=== PATIENT | male | born 1965 | race Caucasian/White ===

== ENCOUNTER → 2019-08-04 09:10 | Outpatient (CLI) | payer OTHER, SELFPAY ==
--- NOTE | 2019-08-04 | DI.CT.S_ITS ---
PROCEDURE: CT ABDOMEN PELVIS W CON INDICATIONS: Encounter for screening for malignant neoplasm of left lower lymphnode TECHNIQUE: After the administration of oral and intravenous contrast, 5 mm thick sections acquired from the diaphragms to the symphysis. 5 mm thick coronal and sagittal reformats were performed. For radiation dose reduction, the following was used: automated exposure control, adjustment of mA and/or kV according to patient size. COMPARISON: None. FINDINGS: Image quality: Excellent. ABDOMEN: Lung bases: Lung bases are clear. Heart size is normal. Solid organs: Liver is normal in size and enhancement. Gallbladder appears normal. Biliary system is non-dilated. Pancreas enhances normally. Spleen is normal in size and enhancement. No adrenal nodules. Kidneys are normal in size and enhancement, without hydronephrosis. Peritoneum and bowel: Stomach, small bowel, and colon loops are normal in caliber and wall thickness. No free fluid or air. Nodes and vessels: No retroperitoneal or mesenteric adenopathy. Aorta and inferior vena cava are normal in caliber. Miscellaneous: No ventral hernias. PELVIS: Genitourinary: Bladder wall thickness is abnormal at the anterior right lateral bladder wall over a 5.8 cm length tapering both proximally and distally, with maximal thickness measuring up to 9 mm while the same area on the left measures only 3 mm in thickness and the appearance raises concern for presence of a plaque-like neoplasm such as transitional cell carcinoma. Miscellaneous: No inguinal hernias. Note is made of a left-sided inguinal lymph node that measures up to 2.0 cm AP and short axis dimension is 1 point for centimeters. Bones: No suspicious bony lesions. No vertebral body compression fractures. IMPRESSION: 1. Right anterolateral plaque-like area of bladder wall thickening, measuring up to 9 mm, with normal thickness of the same area on the left, measuring only 3 mm in maximal thickness. A plaque-like urothelial neoplasm could produce this appearance. Urology consultation likely is warranted. 2. Left inguinal lymph node measures 2.0 x 1.4 cm in maximal dimension with the short axis dimension within normal limits. Continued clinical followup with attention to that site is recommended. Dictated by: Jose Luis Hitchcock M.D. on 08/04/2019 at 10:45 Approved by: Jose Luis Hitchcock M.D. on 08/04/2019 at 11:06
== END ==
PROVIDERS: PCP Internal Medicine; Visit Provider Internal Medicine
DX: Z12.89 Encounter for screening for malignant neoplasm of other sites (principal); R59.0 Localized enlarged lymph nodes
CPT/HCPCS: 74177; Q9967

== ENCOUNTER → 2023-05-23 16:24 | Outpatient (CLI) | payer OTHER, SELFPAY ==
--- NOTE | 2023-05-23 | DI.MRI.S_ITS ---
PROCEDURE: MR KNEE RT WO CON INDICATIONS: Pain in right knee TECHNIQUE: Noncontrast sagittal PD fast spin echo and T2 fast spin echo with fat saturation, sagittal 3-D FLASH with fat saturation; coronal T1 spin echo and PD fast spin echo with fat saturation, and axial PD fast spin echo with fat saturation through the knee. COMPARISON: None. FINDINGS: Image quality: Excellent. Menisci: The medial and lateral menisci demonstrate normal morphology and internal signal. The meniscal root ligaments appear intact. Cruciate ligaments: The anterior and posterior cruciate ligaments appear intact. Medial structures: The medial collateral ligament appears thickened with surrounding soft tissue edema at its femoral insertion. The posterior oblique ligament, semimembranosus tendon insertions, oblique popliteal ligament, and meniscocapsular junction appear intact. Visualized portions of the pes anserinus tendons appear normal. No abnormal bursal fluid. Lateral structures: The lateral collateral ligament, long and short heads of the biceps femoris tendon appear intact. The popliteus tendon appears normal; the popliteofibular ligament appears intact. Iliotibial band appears normal. Anterior structures: Distal quadriceps tendinosis at its superior patellar insertion is seen. The patellar tendon is intact. Low-grade sprain/partial-thickness tear involving medial patellofemoral ligament near its patellar insertion is seen. Patellar alignment is normal. No femoral trochlear dysplasia or ventral trochlear prominence. No edema in the infrapatellar fat pad. Bones and cartilage: No bone marrow contusions or fractures. Mild tricompartmental osteoarthritis and low-grade chondromalacia is noted. Nonspecific subcortical cystic changes are noted involving base of tibial spine near ACL insertion. Joint space: There is small knee joint fluid. There is a 1.6 x 1 x 2.8 cm Pack's cyst. Normal appearing synovial plicae are incidentally noted. IMPRESSION: 1. No definite focal meniscal tear. 2. The cruciate ligaments are intact. 3. Low to moderate grade proximal MCL sprain. 4. Distal quadriceps tendinosis. Low-grade sprain/partial-thickness tear involving medial patellofemoral ligament at its patellar insertion. 5. Small joint effusion and a small Pack's cyst. No loose bodies. Dictated by: Ayo Thompson M.D. on 05/26/2023 at 9:43 Approved by: Ayo Thompson M.D. on 05/26/2023 at 9:55
== END ==
PROVIDERS: PCP Internal Medicine; Referring Provider Internal Medicine; Visit Provider Internal Medicine
DX: S83.411A Sprain of medial collateral ligament of right knee, initial encounter (principal); S76.111A Strain of right quadriceps muscle, fascia and tendon, initial encounter; M25.561 Pain in right knee; M25.461 Effusion, right knee; M71.21 Synovial cyst of popliteal space [Baker], right knee
CPT/HCPCS: 73721

== ENCOUNTER 2024-11-09 21:54 | Emergency (ER) | payer OTHER, SELFPAY ==
[2024-11-09 21:57] VITALS: BP 179/88; PULSE 88; RESP 18; TEMP 36.4; O2SAT 97; BMI 27.7
--- NOTE | 2024-11-09 22:53 | DI.US.S_ITS ---
PROCEDURE: US PERIPH VENOUS LOW EXTREM LT INDICATIONS: Evaluate for DVT TECHNIQUE: Real-time imaging, as well as color and pulse Doppler interrogation, were performed of the lower extremity deep veins from the inguinal ligament to the popliteal fossa, with documentation of the visualized calf veins. COMPARISON: None. FINDINGS: The common femoral, femoral, popliteal, and the visualized calf veins are normally compressible, and free of intraluminal thrombus. Color and pulse Doppler demonstrate normal phasic intraluminal flow. There is normal augmentation response to distal compression maneuver. IMPRESSION: No findings of lower extremity deep venous thrombosis. Approved by: Анна Aguilar M.D.,Ph.D. on 11/09/2024 at 23:41
--- NOTE | 2024-11-09 23:53 | ED.EXTPRO ---
HPI - Extremity Problem General Chief complaint: Extremity Problem,Nontraumatic Stated complaint: left leg and foot px and swelling Time Seen by Provider: 11/09/24 23:53 Source: patient Mode of arrival: Ambulatory History of Present Illness HPI Narrative: 58-year-old male without any significant past medical history comes into the ED from home for evaluation of left leg pain foot pain swelling nontraumatic in nature. States it started approximately 45 days ago has been taking Tylenol with mild relief states he is worried about DVT therefore decided come into the ED for further evaluation treatment. He denies any trauma or falls not on any blood thinners denies any other symptoms such as headache visual disturbances chest pain shortness breath fever chills nausea vomiting abdominal pain or any other GI/ symptoms time. Patient does not have/know of any family or personal history of bleeding or clotting disorders no recent travel. Patient states that he did recently have a injection to his right knee 4 history of knee pain and was told not to be on any NSAIDs for a proximally 4 weeks. He also states that he does have a history of gout states that it was similar previously but given persistent symptoms came into the ED for further evaluation treatment. Related Data Previous Rx's Medication Instructions Recorded prednisone 20 mg tablet 20 mg PO DAILY 10 days #15 tabs 11/10/24 sulfamethoxazole 800 2 tab PO BID 7 days #28 tabs 11/10/24 mg-trimethoprim 160 mg tablet (Bactrim DS) Allergies Allergy/AdvReac Type Severity Reaction Status Date / Time No Known Drug Allergies Allergy Verified 11/09/24 21:57 Review of Systems Review of Systems Narrative: General: Denies fever, chills, weight loss HEENT: Denies headache, eye drainage, eye irritation, head trauma, sore throat, voice change Cardiovascular: Denies any chest pain, palpitations, tachycardia Respiratory: Denies any shortness of breath, cough, wheeze, stridor GI/: Denies any abdominal pain, nausea, vomiting, diarrhea, bright red blood per rectum, melanotic stools, urinary frequency, urinary retention, dysuria, hematuria MSK: Left toe pain swelling redness Skin: Denies any rashes, lesions, discoloration Neuro: Denies any headache, lightheadedness, dizziness, fainting, weakness Psych: Denies SI/HI Patient History Social History (System 01/01/24 @ 08:44 by Tiffanie Marroquin) Smoking Status: Never smoker Smoking Status: Never smoker Exam Narrative Exam Narrative: General: Cooperative, comfortable, well-developed, not in acute distress HEENT: Normocephalic, atraumatic, PERRLA, normal sclera, eyelids normal, Neck: Active full range of motion, atraumatic Chest: Normal to inspection, negative crepitus, no overlying erythema ecchymosis Respiratory: Normal respiratory effort, not in acute respiratory distress, clear to auscultation bilaterally negative cough, wheeze, tachypnea, rhonchi, rales Cardiology: Regular rate rhythm negative gallop, murmur, rubs GI/: Normal to inspection, soft, nonrigid, no tenderness to palpation, exam deferred MSK: Bilateral lower extremities are neurovascularly intact, the left toe does appear erythematous but no streaking there is mild tenderness to palpation however no crepitus noted. Skin: No rashes lesions noted Neuro: Alert awake oriented x3, moves all 4 extremities spontaneously, cranial nerves intact, able to answer all questions appropriately follows commands appropriately Psych: Cooperative, negative suicidal or homicidal ideations Initial Vital Signs Initial Vital Signs: Vital Signs Temperature 97.6 F 11/09/24 21:57 Pulse Rate 88 11/09/24 21:57 Respiratory Rate 18 11/09/24 21:57 Blood Pressure 179/88 H 11/09/24 21:57 Pulse Oximetry 97 11/09/24 21:57 Oxygen Delivery Method Room Air 11/09/24 21:57 Course Orders Ordered: ED Orders 11/09/24 22:53 US periph venous low extrem lt Stat Prednisone (Prednisone 20 Mg Tablet) 40 mg PO NOW ONE Stop: 11/10/24 00:18 Trimethoprim/Sulfamethoxazole (Trimeth/Sulfa 160/800 (Ds) Tablet) 1 tab PO NOW ONE Stop: 11/10/24 00:18 Vital Signs Vital signs: Vital Signs - 8 hr 11/09/24 21:57 Temperature 97.6 F Pulse Rate 88 Respiratory Rate 18 Blood Pressure 179/88 H Pulse Oximetry 97 Oxygen Delivery Method Room Air MDM - Extremity (Nontraumatic) Differential Diagnosis Differential diagnosis: Likely deep vein thrombosis of lower extremity and other (Gout, cellulitis) Imaging Data US - DVT: Radiologist's Impression: [address] [address] Ultrasound Report Signed Patient: Carl Liu MR#: [id number] : 1965 Acct:[id number] Age/Sex: 58 / M Date of Service: 11/09/24 Loc: ED Accession Number: [id number] Procedure: US periph venous low extrem lt Ordering Provider: Corbin Suggs D.O. PROCEDURE: US PERIPH VENOUS LOW EXTREM LT INDICATIONS: Evaluate for DVT TECHNIQUE: Real-time imaging, as well as color and pulse Doppler interrogation, were performed of the lower extremity deep veins from the inguinal ligament to the popliteal fossa, with documentation of the visualized calf veins. COMPARISON: None. FINDINGS: The common femoral, femoral, popliteal, and the visualized calf veins are normally compressible, and free of intraluminal thrombus. Color and pulse Doppler demonstrate normal phasic intraluminal flow. There is normal augmentation response to distal compression maneuver. IMPRESSION: No findings of lower extremity deep venous thrombosis. MDM Narrative Medical decision making narrative: 58-year-old male with a history of gout comes into the ED from home for evaluation of left toe pain, states it started spontaneously a proximally 4-5 days ago no trauma no falls not on any blood thinners no recent travel. He states that it was similar to when he had gout in the past however symptoms lasted a lot longer therefore came into the ED for further evaluation treatment. Denies any trauma or falls. Patient states that he is not having any other systemic symptoms. Patient was concerned he might have had a blood clot DVT ultrasound performed here negative for acute DVT. Did discuss need for possible arthrocentesis as well as x-ray however patient states that he just came in to make sure that he did not have a blood clot. Did offer additional lab work imaging but would prefer to trial oral antibiotics and steroids to treat overlying cellulitis and gout. Patient not able to take NSAIDs for additional 2 weeks given recent history of injections to his right knee according to his orthopedic surgeon. Therefore patient will be sent home with oral antibiotics for cellulitis and steroids for possible gout flare-up. He was given strict return precautions he verbalized understanding of this and agrees to being discharged home with outpatient follow up Discharge Plan Departure Patient Disposition: Home Clinical Impression: Pain of left great toe Instructions: DI for Cellulitis -- Adult, DI for Gout Activity Restrictions/Additional Instructions: Please follow up with Orthopedic surgery or Podiatry as well as your primary care doctor in outpatient setting Please return to the emergency department if the symptoms get worse or do not improve Please read the discharge instructions sheet carefully and bring all papers to all doctor follow-up visits, as it may contain information that your doctor may want to see. Disease processes change and evolve, if your symptoms worsen or if you develop any new symptoms that are concerning to you please return for evaluation. Your evaluation today does not show any evidence of any life-threatening/serious illnesses requiring admission to the hospital or surgery. Please follow-up with your doctor for re-evaluation in approximately 1 day. Seek immediate medical attention for any worrisome symptoms. *If you do not have a primary care provider please contact the [facility] Resource line at [phone]. They will ask some questions about your medical history and help get you set up with a doctor in the community. Prescriptions: New sulfamethoxazole-trimethoprim [Bactrim DS] 800-160 mg tablet 2 tab PO BID 7 Days Qty: 28 0RF prednisone 20 mg tablet 20 mg PO DAILY 10 Days Qty: 15 0RF Rx Instructions: Please take 30 mg prednisone for the 1st 5 days, please decrease the mg of prednisone by 5 for the remaining 5 days Day 1-5 Please take 30 mg Day 6 please take 25 mg Day 7 please take 20 mg Day 8 please take 15 mg Day 9 please take 10 mg Day 10 please take 5 mg Referrals: Katalina Clemens MD [Primary Care Provider] - Stand Alone Forms: Patient Portal/API/Survey
[2024-11-10] MEDS: predniSONE 20 MG TABLET 40 MG PO (00:26)
[2024-11-10] MEDS: TRIMETH/SULFA 160/800 (DS) TABLET 1 TAB PO (00:26)
[2024-11-10 00:33] VITALS: BP 160/86; PULSE 86; RESP 14; TEMP 36.6; O2SAT 98
== END 2024-11-10 00:35 | disposition home or self-care (01) ==
PROVIDERS: Emergency Provider Student in an Organized Health Care Education/Training Program; PCP Internal Medicine
DX: M79.675 Pain in left toe(s) (principal)
CPT/HCPCS: 93971; 99283

== ENCOUNTER 2025-01-03 11:57 | Emergency (ER) | payer OTHER, SELFPAY ==
[2025-01-03 12:03] VITALS: BP 185/88; PULSE 87; RESP 17; TEMP 37.1; O2SAT 97; BMI 27.7
--- NOTE | 2025-01-03 12:24 | ED_ITS ---
HPI - Extremity Problem <Paul Gonzalez PA-C - Last Filed: 01/03/25 15:29> General Chief complaint: Extremity Problem,Nontraumatic Stated complaint: Left foot joint pain Time Seen by Provider: 01/03/25 12:13 Source: patient Mode of arrival: Ambulatory History of Present Illness HPI Narrative: 59-year-old male with past medical history gout presents to the ED with 2 months of left big toe swelling, redness, pain. Patient was seen in the ED on 11/09/2024 with the same symptoms. Patient was given antibiotics and prednisone. Patient states that his symptoms improved for some time, however the symptoms resurfaced again. Patient has had a distant history of gout. No numbness, tingling, weakness. No fever, chills, chest pain, shortness of breath, nausea, vomiting. Related Data Home Medications Medication Instructions Recorded Confirmed albuterol sulfate 90 mcg/actuation 1 inh inhalation QID 01/03/25 01/03/25 aerosol inhaler montelukast 10 mg tablet 10 mg PO DAILY 01/03/25 01/03/25 (Singulair) Previous Rx's Medication Instructions Recorded prednisone 5 mg tablet See Rx Instructions .Route 01/03/25 .COMPLEX #45 tabs Allergies Allergy/AdvReac Type Severity Reaction Status Date / Time No Known Drug Allergies Allergy Verified 01/03/25 12:06 Review of Systems <Paul Gonzalez PA-C - Last Filed: 01/03/25 15:29> Constitutional Constitutional: Denies chills, Denies fatigue, Denies fever(s), Denies frequent falls, Denies lethargy and Denies weakness Eyes Eyes: Denies change in vision, Denies eye discharge, Denies irritation and Denies loss of vision ENT Ears, Nose, Mouth, and Throat: Denies change in voice, Denies dizziness, Denies neck pain, Denies sore throat and Denies throat swelling Cardiovascular Cardiovascular: Denies chest pain, Denies irregular heart rhythm, Denies lightheadedness, Denies palpitations, Denies dyspnea, Denies dyspnea on exertion and Denies orthopnea Respiratory Respiratory: Denies cough, Denies dyspnea, Denies dyspnea on exertion and Denies wheezing Gastrointestinal Gastrointestinal: Denies abdominal pain, Denies change in bowel habits, Denies diarrhea, Denies nausea and Denies vomiting Musculoskeletal Musculoskeletal: Denies neck pain and Denies numbness Comments: Base of 1st left MTP swelling, redness, pain Integumentary/Breasts Skin/Breast: Denies pruritus, Denies erythema, Denies rash and Denies wounds Neurologic Neurologic: Denies behavioral changes, Denies confusion, Denies dizziness, Denies frequent falls, Denies loss of vision, Denies numbness and Denies weakness Psychiatric Psychiatric: Denies anxiety, Denies behavioral changes, Denies confusion, Denies depression, Denies homicidal ideation and Denies suicidal ideation Endocrine Endocrine: Denies fatigue, Denies flushing and Denies palpitations Hematologic/Lymphatic Hematologic/Lymphatic: Denies easy bruising Allergic/Immunologic Allergic/Immunologic: Denies urticaria, Denies throat swelling and Denies wheezing Patient History <Paul Gonzalez PA-C - Last Filed: 01/03/25 15:29> Smoking Status: Never smoker Exam <JLUIS Barker Last Filed: 01/03/25 15:29> Narrative Exam Narrative: Const General:?cooperative, healthy appearing and comfortable [facility] Head:?normal to inspection Ears:?hearing grossly normal bilaterally Nose:?external nose normal Face and sinus:?normal facial exam and sinuses nontender Mouth:?oral mucosae normal Throat:?posterior oropharynx normal Eyes General:?appearance normal, both eyes and all related structures Neck Neck:?normal visual inspection and no lymphadenopathy noted Resp Effort & Inspection:?normal respiratory effort Auscultation:?clear to auscultation bilaterally Cardio Rate:?regular rate Rhythm:?regular rhythm Musculoskeletal There is swelling, tenderness, erythema to the base of the left 1st MTP. There is full range of motion. Strength and sensation is intact. Neurovascularly intact. Neuro General:?patient alert, patient awake and patient oriented x3 Initial Vital Signs Initial Vital Signs: Vital Signs Temperature 98.7 F 01/03/25 12:03 Pulse Rate 87 01/03/25 12:03 Respiratory Rate 17 01/03/25 12:03 Blood Pressure 185/88 H 01/03/25 12:03 Pulse Oximetry 97 01/03/25 12:03 Oxygen Delivery Method Room Air 01/03/25 12:03 <Becky Guido DO - Last Filed: 01/09/25 23:45> Initial Vital Signs Initial Vital Signs: Vital Signs Temperature 98.7 F 01/03/25 12:03 Pulse Rate 87 01/03/25 12:03 Respiratory Rate 17 01/03/25 12:03 Blood Pressure 185/88 H 01/03/25 12:03 Pulse Oximetry 97 01/03/25 12:03 Oxygen Delivery Method Room Air 01/03/25 12:03 Course <Paul Gonzalez PA-C - Last Filed: 01/03/25 15:29> Orders Ordered: ED Orders 01/03/25 13:16 XR foot LT min 3V Stat Vital Signs Vital signs: Vital Signs - 8 hr 01/03/25 12:03 01/03/25 14:31 Temperature 98.7 F 98.1 F Pulse Rate 87 100 H Respiratory Rate 17 16 Blood Pressure 185/88 H 162/72 H Pulse Oximetry 97 96 Oxygen Delivery Method Room Air Room Air <Becky Guido DO - Last Filed: 01/09/25 23:45> Orders Ordered: ED Orders 01/03/25 13:16 XR foot LT min 3V Stat Vital Signs Vital signs: Vital Signs - 8 hr 01/03/25 12:03 01/03/25 14:31 Temperature 98.7 F 98.1 F Pulse Rate 87 100 H Respiratory Rate 17 16 Blood Pressure 185/88 H 162/72 H Pulse Oximetry 97 96 Oxygen Delivery Method Room Air Room Air MDM - Extremity (Nontraumatic) <JLUIS Barker Last Filed: 01/03/25 15:29> MDM Narrative Medical decision making narrative: 59-year-old male with past medical history gout presents to the ED with 2 months of left big toe swelling, redness, pain. X-ray was obtained today which shows no visualized acute fracture or dislocation. There is 1st MTP degenerative narrowing. Patient's symptoms are most consistent with gout. Patient has full range of motion, patient is able to move the toe although it is painful. Symptoms have been persistent over the last 1-2 months. Unlikely septic joint/infection. Recommend ibuprofen, prednisone. Prednisone prescribed. Recommend follow-up with PCP for further evaluation and treatment. ED return precautions discussed with patient. Patient verbalized understanding. Medical records reviewed: Yes Discharge Plan Departure Patient Disposition: Home Clinical Impression: Gout Qualifiers: Gout site: toe Gout etiology: unspecified cause Chronicity: unspecified Laterality: left Qualified Code(s): M10.9 - Gout, unspecified Instructions: DI for Gout Activity Restrictions/Additional Instructions: You were evaluated in the ED today for left foot pain. Your x-ray does not show any fractures or dislocations. There is some joint space narrowing which could be consistent with gout. Please take 800 mg of ibuprofen 3 times a day with food. You may also take prednisone that has been prescribed for you. It is important for you to follow-up with your PCP for further evaluation and treatment. Return to the ED if you have worsening symptoms, numbness, tingling, weakness, fever, chills. Prescriptions: New prednisone 5 mg tablet See Rx Instructions .ROUTE .COMPLEX Qty: 45 0RF Rx Instructions: Please take 30 mg prednisone for the 1st 5 days, please decrease the mg of prednisone by 5 for the remaining 5 days. Day 1-5 please take 30 mg, day 6 please take 25 mg, day 7 please take 20 mg, day 8 please take 15 mg, day 9 please take 10 mg, day 10 please take 5 mg No Action montelukast [Singulair] 10 mg Tablet 10 mg PO DAILY albuterol sulfate [ProAir HFA] 90 mcg/actuation Hfa Aerosol Inhaler 1 inh INHALATION QID Referrals: Katalina Clemens MD [Primary Care Provider] - Stand Alone Forms: Patient Portal/API/Survey ED Sign-out <Becky Guido DO - Last Filed: 01/09/25 23:45> Cosign ED Attending Beatrice Attestation: I was available for consultation.
--- NOTE | 2025-01-03 13:16 | DI.RAD.S_ITS ---
PROCEDURE: XR FOOT LT MIN 3V INDICATIONS: foot swelling on base of 1st MTP TECHNIQUE: 3 views of the foot were acquired. COMPARISON: None. FINDINGS: Bones: No fractures or dislocations. No suspicious bony lesions. 1st MTP degenerative narrowing. Soft tissues: No tibiotalar joint effusion. Achilles tendon appears normal. IMPRESSION: No visualized acute fracture or dislocation. However, if clinical concern and/or pain persist, short interval imaging followup in 7-10 days is recommended, as occult injury cannot be definitively excluded. Dictated by: Yeimi Landon M.D. on 01/03/2025 at 13:31 Approved by: Yeimi Landon M.D. on 01/03/2025 at 13:32
--- NOTE | 2025-01-03 13:48 | PC.NURSE ---
Pt reports being sent here by [facility] for further evaluation and potential fluid removal from big left toe joint. Pt also reports that he had chills two nights ago. Provider Paul made aware.
[2025-01-03 14:31] VITALS: BP 162/72; PULSE 100; RESP 16; TEMP 36.7; O2SAT 96
--- NOTE | 2025-01-03 14:55 | PC.NURSE ---
This RN asked provider Carlos if they were comfortable with letting patient discharge with a pulse of 100 and provider confirmed prior to patient discharge.
== END 2025-01-03 14:38 | disposition home or self-care (01) ==
PROVIDERS: Emergency Provider Student in an Organized Health Care Education/Training Program; PCP Internal Medicine
DX: M10.9 Gout, unspecified (principal)
CPT/HCPCS: 73630; 99282; 99283

== ENCOUNTER 2025-03-11 12:06 | Emergency (ER) | payer OTHER, SELFPAY ==
[2025-03-11 12:43] VITALS: BP 175/86; PULSE 82; RESP 16; TEMP 36.4; O2SAT 99; BMI 27.7
--- NOTE | 2025-03-11 12:57 | ED_ITS ---
<Statement entered by Corbin Suggs, - 03/11/25 16:39> Dr. Suggs: I was immediately available in the department for consultation. I did not actually see the patient. HPI - Back Pain/Injury General Chief Complaint: Back Pain/Injury Stated Complaint: lower back pain, can't sit down Time Seen by Provider: 03/11/25 12:57 History of Present Illness HPI Narrative: Mr. Liu is a very pleasant 59-year-old male with a past medical history of gout, prostate cancer with recent recurrence awaiting treatment plans who presents to the emergency department for acute low back pain x1 hour. Patient states he was at home, standing/leaning forward slightly when he sneezed and developed acute severe pain radiating across his low back that is burning in nature. This pain does not radiate down either legs. Pain does not extend into the SI joint region or the tailbone. No numbness tingling or weakness of the lower extremities. No history of any low back pain or back problems. 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 No fevers, chills, chest pain, abdominal pain, dysuria, hematuria, bowel or bladder dysfunction, saddle anesthesia or weakness. Patient's pain is constant and is only slightly alleviated when standing up leaning forward but overall he can not find a position of comfort. He was dropped off at the ER by his . Related Data Home Medications ?Medication ?Instructions ?Recorded ?Confirmed albuterol sulfate 90 mcg/actuation 1 inh inhalation QI D 01/03/25 01/03/25 aerosol inhaler montelukast 10 mg tablet 10 mg PO DAILY 01/03/2512/23 (Singulair) Previous Rx's ?Medication ?Instructions ?Recorded prednisone 5 mg tablet See Rx Instructions .Route 0 01/03/25 .COMPLEX #45 tabs hydrocodone 5 mg-acetaminophen 325 1 tab PO Q4-6H PRN pain #12 tabs 03/11/25 mg tablet lidocaine 5 % topical patch 1 patch topical DAILY PRN pain #30 03/11/25 (Lidoderm) ea prednisone 20 mg tablet 40 mg (2 x 20 mg) PO DAILY 5 days 03/11/25 #10 tabs Allergies Allergy/AdvReac Type Severity Reaction Status Date / Time No Known Drug Allergies Allergy Verified 01/03/25 12:06 Review of Systems Review of Systems ROS Unobtainable: All systems reviewed & are unremarkable except as noted in HPI and below Exam Narrative Exam Narrative: GENERAL: 59 year old patient appears stated age. Well-developed patient, in mild distress, sitting in wheelchair. HEAD: Atraumatic. Normocephalic. NECK: Trachea midline. Cervical ROM intact. CARDIOVASCULAR: Regular rate RESPIRATORY: ?Nonlabored respirations. ?Speaking in clear, full sentences. ?Clear to auscultation. EXTREMITIES: No edema or joint tenderness. Flexion/extension strength intact in the bilateral feet/ankles and knees. SITLT on BL LE. BACK: No tenderness to palpation of back, subjective pain is in the lower lumbar region in both mid lumbar spine and bilateral paraspinal muscle groups. No rashes. NEURO: AOx3. ?Clear speech. ?Moves all 4 extremities appropriately. SKIN: No rash or erythema of visible areas. Initial Vital Signs Initial Vital Signs: Vital Signs Temperature 97.5 F L 03/11/25 12:43 Pulse Rate 82 03/11/25 12:43 Respiratory Rate 16 03/11/25 12:43 Blood Pressure 175/86 H 03/11/25 12:43 Pulse Oximetry 99 03/11/25 12:43 Oxygen Delivery Method Room Air 03/11/25 12:43 Course Orders Ordered: ED Orders 03/11/25 13:09 CT lumbar spine wo con Stat Discontinued Medications Acetaminophen (Acetaminophen 325 Mg Tablet) 650 mg PO NOW ONE Stop: 03/11/25 13:10 Last Admin: 03/11/25 13:16 Dose: 650 mg Documented By: RENNY Hydrocodone Bitart/Acetaminophen (Hydrocodone/Acet 5/325 Tablet) 1 tab PO NOW O NE Stop: 03/11/25 13:10 Last Admin: 03/11/25 13:15 Dose: 1 tab Documented By: RENNY Lidocaine (Lidocaine 5% Patch) 1 each TOP NOW ONE Stop: 03/11/25 13:10 Last Admin: 03/11/25 13:15 Dose: 1 each Documented By: RENNY Prednisone (Prednisone 20 Mg Tablet) 40 mg PO NOW ONE Stop: 03/11/25 16:05 Vital Signs Vital signs: Vital Signs - 8 hr 03/11/25 12:43 03/11/25 15:25 Temperature 97.5 F L Pulse Rate 82 59 L Respiratory Rate 16 16 Blood Pressure 175/86 H 128/86 Pulse Oximetry 99 98 Oxygen Delivery Method Room Air Room Air MDM - Back Pain/Injury Medical Records Attestation: I reviewed the patient's medical records. Medical records narrative: Nuclear medicine scan 01/05/2025 revealing malignant neoplasm of prostate recurrence. Imaging Data CT Lumbar : Radiologist's Impression: PROCEDURE: CT LUMBAR SPINE WO CON INDICATIONS: acute low back pain TECHNIQUE: Noncontrast 3 mm thick sections acquired from the T12 level to the sacrum. Sagittal and coronal reformats were constructed. For radiation dose reduction, the following was used: automated exposure control. COMPARISON: [place], [place], [place] PET CT FUSION SKULL 2 THIGH, 01/05/2025, 16:43. FINDINGS: Image quality: Excellent. Bones: There is normal bony alignment. No acute vertebral body compression fractures. No suspicious lytic or blastic bony lesions. No pars defects. Mild multilevel degenerative endplate changes. T12-L1: No significant spinal canal stenosis or neural foraminal narrowing. L1-L2: No significant spinal canal stenosis or neural foraminal narrowing. L2-L3: No significant spinal canal stenosis or neural foraminal narrowing. L3-L4: No significant spinal canal stenosis or neural foraminal narrowing. L4-L5: Moderate circumferential disc bulging as well as mild bilateral facet hypertrophy and buckling of the ligamentum flavum. Findings result in [id number] narrowing of the spinal canal and bilateral neural foramina. L5-S1: Mild circumferential disc bulging as well as mild bilateral facet hypertrophy. Findings result in moderate bilateral neural foraminal narrowing that is slightly worse on the right without significant spinal canal stenosis. Soft tissues: No retroperitoneal masses or hematomas. Visualized aorta is normal in caliber. IMPRESSION: 1. No acute osseous abnormality. 2. Mild degenerative disc disease and facet hypertrophy as described in the body report. No high-grade spinal canal stenosis or high-grade neural foraminal narrowing. Approved by: Urbano Hernandez M.D. on 03/11/2025 at 15:23 [facility] Narrative Medical decision making narrative: 59-year-old male with a past medical history of gout, prostate cancer with recent recurrence awaiting treatment plans who presents to the emergency department for acute low back pain x1 hour. Differential diagnosis includes but is not limited to bone metastasis, lumbar degenerative disc disease, lumbar strain, sprain, spinal stenosis, herniated intervertebral disc, bulging intervertebral disc, radiculopathy, etc. On exam patient is in mild distress secondary to his low back pain, nontoxic appearing, vital signs appropriate with the exception of mildly elevated blood pressure. Patient's lower extremities are neurovascularly intact and he has no radiation of pain down to the legs, but he does have burning pain across the entire lumbar region that is not reproducible tenderness. Given his history of active prostate cancer and acute low back pain, we will obtain CT lumbar spine in treat pain with hydrocodone, Tylenol, Lidoderm. Patient already took 600 mg of ibuprofen. Patient's pain improved after ED treatment, he is standing and ambulating around room. 1600: Discussed and printed patient's CT lumbar results revealing L4-L5 and L5- S1 circumferential disc bulging. Mild degenerative disc disease and facet hypertrophy as described in the body of the report, there is no high-grade spinal canal stenosis or high-grade neural foraminal narrowing. There are no suspicious lytic or blastic bony lesions. Patient's pain is beginning to return, however he is eagerly requesting discharge home from the ED. He is ambulatory. We will treat if prescriptions of prednisone, Lidoderm, hydrocodone-acetaminophen as needed for severe breakthrough pain and ibuprofen and Tylenol for moderate pain. Recommended avoiding heavy lifting. Advised heat therapy, gentle stretching and exercise. Discussed follow up with PCP who can refer to production specialist. Discussed strict ED return precautions. Patient verbalized understanding of all information agreeable with the plan. Risks of narcotic pain medications discussed. He is stable for discharge home. Discharge Plan Departure Patient Disposition: Home Clinical Impression: Bulging lumbar disc Strain of lumbar region Qualifiers: Encounter type: initial encounter Qualified Code(s): S39.012A - Strain of muscle, fascia and tendon of lower back, initial encounter Instructions: DI for Low Back Pain Activity Restrictions/Additional Instructions: Dear Noe, Thank you for coming to the emergency department. Today you were evaluated for low back pain. Your CT scan revealed L4-L5 and L5-S1 disc bulging which can cause compression on nerves and subsequent back pain. It is best to follow up with your primary care doctor who can refer you to a production specialist if needed. Please rest, avoid heavy lifting/bending/twisting, use ibuprofen and Tylenol for pain in addition to heat therapy, prescribed steroids lidocaine patches and prescribed opiate medication as needed for severe breakthrough pain. Please take Ibuprofen (Motrin/Advil) or Acetaminophen (Tylenol) for pain. These are available over the counter. You may take Ibuprofen 600 mg every 8 hours with food for pain. You may also take Acetaminophen 650 mg every 4-6 hours for pain. Do not exceed 3000 mg of Tylenol a day as this can cause liver damage. Do not drink alcohol with either of these medications. Return to the ER immediately if you develop any new or worsening symptoms, inability to walk, inability to use the bathroom normally, fevers or any other concerns. Please follow up with your primary care doctor within the next 2-3 days for ER follow-up. (If you do not have a PCP you can call [phone]. ?to schedule an appointment with an [facility] Primary Care Provider) IF YOU DEVELOP ANY NEW OR WORSENING SYMPTOMS, RETURN TO THE ER! Please read the attached instructions, they highlight more specific treatments and interventions for you at home. Thank you for letting me participate in your care, Roselyn Lucero PA-C You have been prescribed a short course of narcotic medications. These are potentially dangerous and addictive medications that should be used carefully. While on these medications you cannot drive or operate heavy machinery. Additionally, you cannot sign legal documents or perform any duties such as this. 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 Please understand that we cannot provide further refills of narcotics or controlled substances through the ED and your pain management will need to be through your Primary Care Provider Prescriptions: New prednisone 20 mg tablet 40 mg PO DAILY 5 Days Qty: 10 0RF hydrocodone-acetaminophen 5-325 mg tablet 1 tab PO Q4-6H PRN (Reason: pain) Qty: 12 0RF lidocaine [Lidoderm] 5 % adhesive patch,medicated 1 patch topical DAILY PRN (Reason: pain) Qty: 30 0RF Rx Instructions: leave on most painful area for up to 12 hrs No Action montelukast [Singulair] 10 mg Tablet 10 mg PO DAILY albuterol sulfate [ProAir HFA] 90 mcg/actuation Hfa Aerosol Inhaler 1 inh INHALATION QID prednisone 5 mg tablet See Rx Instructions .ROUTE .COMPLEX Qty: 45 0RF Rx Instructions: Please take 30 mg prednisone for the 1st 5 days, please decrease the mg of prednisone by 5 for the remaining 5 days. Day 1-5 please take 30 mg, day 6 please take 25 mg, day 7 please take 20 mg, day 8 please take 15 mg, day 9 please take 10 mg, day 10 please take 5 mg Referrals: Katalina Clemens MD [Primary Care Provider, Internal Medicine] Stand Alone Forms: Patient Portal/API
--- NOTE | 2025-03-11 13:09 | DI.CT.S_ITS ---
PROCEDURE: CT LUMBAR SPINE WO CON INDICATIONS: acute low back pain TECHNIQUE: Noncontrast 3 mm thick sections acquired from the T12 level to the sacrum. Sagittal and coronal reformats were constructed. For radiation dose reduction, the following was used: automated exposure control. COMPARISON: [place], [place], [place] PET CT FUSION SKULL 2 THIGH, 01/05/2025, 16:43. FINDINGS: Image quality: Excellent. Bones: There is normal bony alignment. No acute vertebral body compression fractures. No suspicious lytic or blastic bony lesions. No pars defects. Mild multilevel degenerative endplate changes. T12-L1: No significant spinal canal stenosis or neural foraminal narrowing. L1-L2: No significant spinal canal stenosis or neural foraminal narrowing. L2-L3: No significant spinal canal stenosis or neural foraminal narrowing. L3-L4: No significant spinal canal stenosis or neural foraminal narrowing. L4-L5: Moderate circumferential disc bulging as well as mild bilateral facet hypertrophy and buckling of the ligamentum flavum. Findings result in [id number] narrowing of the spinal canal and bilateral neural foramina. L5-S1: Mild circumferential disc bulging as well as mild bilateral facet hypertrophy. Findings result in moderate bilateral neural foraminal narrowing that is slightly worse on the right without significant spinal canal stenosis. Soft tissues: No retroperitoneal masses or hematomas. Visualized aorta is normal in caliber. IMPRESSION: 1. No acute osseous abnormality. 2. Mild degenerative disc disease and facet hypertrophy as described in the body report. No high-grade spinal canal stenosis or high-grade neural foraminal narrowing. Approved by: Urbano Hernandez M.D. on 03/11/2025 at 15:23
[2025-03-11] MEDS: HYDROCODONE/ACET 5/325 TABLET 1 TAB PO (13:15)
[2025-03-11] MEDS: LIDOCAINE 5% PATCH 1 EACH TOP (13:15)
[2025-03-11] MEDS: ACETAMINOPHEN 325 MG TABLET 650 MG PO (13:16)
[2025-03-11 15:25] VITALS: BP 128/86; PULSE 59; RESP 16; O2SAT 98
== END 2025-03-11 16:16 | disposition home or self-care (01) ==
PROVIDERS: Emergency Provider Physician Assistant; PCP Internal Medicine
DX: S39.012A Strain of muscle, fascia and tendon of lower back, initial encounter (principal); M51.369 Other intervertebral disc degeneration, lumbar region without mention of lumbar back pain or lower extremity pain
CPT/HCPCS: 72131; 99283; 99284